=== PATIENT | male | born 1945 | race Caucasian/White ===

== ENCOUNTER 2019-02-26 08:00 | Day surgery (SDC) | payer MEDICARE, OTHER ==
[~2019-02-26] VITALS: Ht 175.3 cm; Wt 84.8 kg
[2019-02-26] MEDS ORDERED: FURO-150 PO (08:43)
[2019-02-26] MEDS ORDERED: BUDE10.2 INH (08:43)
[2019-02-26] MEDS ORDERED: NITR0.4T SL (08:43)
[2019-02-26] MEDS ORDERED: ALBU8.5H8 INH (08:43)
[2019-02-26] MEDS ORDERED: ASPI81TA52 PO (08:43)
[2019-02-26] MEDS ORDERED: FLUO20CA22 PO (08:43)
[2019-02-26] MEDS ORDERED: METF500T PO (08:43)
[2019-02-26] MEDS ORDERED: TRAZ-219 PO (08:43)
[2019-02-26] MEDS ORDERED: ALLO100T PO (08:43)
[2019-02-26] MEDS ORDERED: LORA-269 PO (08:43)
[2019-02-26] MEDS ORDERED: LISI-604 PO (08:43)
[2019-02-26] MEDS ORDERED: ATOR40TA PO (08:43)
[2019-02-26] MEDS ORDERED: METO1TAB25 PO (08:43)
[2019-02-26 09:49] VITALS: BP 110/58
[2019-02-26 12:20] LABS: LDH,BODY FLUID 58 U/L
[2019-02-26 14:04] LABS: TOTAL PROTEIN,BODY FLUID < 2.0 G/DL
== END 2019-02-26 10:30 | disposition home or self-care (01) ==
LOC: SSTAY O 08:00
PROVIDERS: ATTEND Radiology Diagnostic Radiology
DX: J90 Pleural effusion, not elsewhere classified (principal); I10 Essential (primary) hypertension; I25.2 Old myocardial infarction; J34.9 Unspecified disorder of nose and nasal sinuses; E11.39 Type 2 diabetes mellitus with other diabetic ophthalmic complication; H40.9 Unspecified glaucoma; Z95.5 Presence of coronary angioplasty implant and graft; Z88.0 Allergy status to penicillin; Z88.5 Allergy status to narcotic agent; Z79.82 Long term (current) use of aspirin; Z79.899 Other long term (current) drug therapy
CPT/HCPCS: 32555; 71045; 83615; 84157; 87070; C1729